=== PATIENT | male | born 1995 | race Caucasian/White ===

== ENCOUNTER 2025-02-15 14:49 | Emergency (ER) | payer OTHER, SELFPAY ==
[2025-02-15 14:49] VITALS: BP 133/87; PULSE 66; RESP 16; TEMP 36.1; O2SAT 97
--- NOTE | 2025-02-15 15:37 | ED_ITS ---
HPI - Ear Problem General Chief complaint: Ear Stated complaint: water in right ear Time Seen by Provider: 02/15/25 14:52 History of Present Illness HPI Narrative: Pt jumped into pool and felt like water went in but couldn't get out. Pt has history of issues with wax in ears. Pt says has trouble hearing and feels blocked. Review of Systems Review of Systems: All systems reviewed & are unremarkable except as noted in HPI and below Exam Const: General: healthy appearing and no acute distress Nutritional Appearance: well nourished Orientation/consciousness: patient oriented x3 Limitations: no limitations HENMT: Head: normal to inspection Ears: Abnormal EAC present (right) cerumen impaction Face/Nose/Sinus: Normal external nose present Neck: Neck: normal visual inspection and no lymphadenopathy Resp: Effort & Inspection: normal respiratory effort Cardio: Rate: regular rate Rhythm: regular rhythm Course Vital Signs Vital signs: Vital Signs Temperature 96.9 F L 02/15/25 14:49 Pulse Rate 66 02/15/25 14:49 Respiratory Rate 16 02/15/25 14:49 Blood Pressure 133/87 02/15/25 14:49 Pulse Oximetry 97 02/15/25 14:49 Oxygen Delivery Room Air 02/15/25 14:49 Temperature 96.9 F L 02/15/25 14:49 Pulse Rate 63 02/15/25 15:45 Respiratory Rate 20 02/15/25 15:45 Blood Pressure 147/91 H 02/15/25 15:45 Pulse Oximetry 95 02/15/25 15:45 Oxygen Delivery Room Air 02/15/25 15:45 Medical Decision Making [facility] Narrative Medical decision making narrative: pt jumped in pool and felt like water stuck in ear. Pt has impacted derumen in right ear. Irrigate and large ceremen plug removed and pt able to hear again and feels better. Vital Signs Vital Signs: Vital Signs Temperature 96.9 F L 02/15/25 14:49 Pulse Rate 66 02/15/25 14:49 Respiratory Rate 16 02/15/25 14:49 Blood Pressure 133/87 02/15/25 14:49 Pulse Oximetry 97 02/15/25 14:49 Oxygen Delivery Room Air 02/15/25 14:49 Temperature 96.9 F L 02/15/25 14:49 Pulse Rate 63 02/15/25 15:45 Respiratory Rate 20 02/15/25 15:45 Blood Pressure 147/91 H 02/15/25 15:45 Pulse Oximetry 95 02/15/25 15:45 Oxygen Delivery Room Air 02/15/25 15:45 Discharge Plan Discharge Clinical Impression: Excessive cerumen in right ear canal Patient Disposition: Home Condition: Improved Instructions: Antibiotic Form, Carbamide Peroxide (Into the ear) Patient Language: [place]ar[place] Follow-up/Referrals: [place],MD Casey [Primary Care Provider] -
[2025-02-15 15:45] VITALS: BP 147/91; PULSE 63; RESP 20; O2SAT 95
== END 2025-02-15 15:45 | disposition home or self-care (01) ==
PROVIDERS: Emergency Provider Emergency Medicine; PCP Family Medicine
DX: H61.21 Impacted cerumen, right ear (principal)
CPT/HCPCS: 69209; 99281